=== PATIENT | female | born 1970 | race Caucasian/White ===

== ENCOUNTER 2017-06-04 11:45 | Emergency (ER) ==
[2017-06-04 11:51] VITALS: BP 127/85; TEMP 97.3; BMI 23.2
--- NOTE | 2017-06-04 12:51 | ED.PDOC ---
General ED Provider: Dr. AMRITA HODGSON JR Chief Complaint: Hand Pain/Injury Stated Complaint: PATIENT STATES THAT SHE AWOKE AT 2:00AM YESTERDAY MORNING WITH LOSS OF FEELING IN HER MIDDLE TWO FINGERS. PATIENT STATES THAT SHE HAD BACK PAIN THAT RADIATED THROUGH HER SHOULDER AND DOWN HER ARM TO HER HAND. PATIENT STATES THAT THE PAIN FROM YESTERDAY HAS SINCE IMPROVED, BUT THE NUMBNESS IN HER MIDDLE FINGERS STILL PERSISTS. 97.3 71 18 97% 127/85 2/10 naproxen Time Seen by Physician: 12:48 Mode of Arrival: Walk-In Information Source: Patient Exam Limitations: No limitations Nursing and Triage Documentation Reviewed and Agree: No Review of Systems - Review Of Systems Constitutional: Reports: No symptoms Eyes: Reports: No symptoms Ears, Nose, Mouth, Throat: Reports: No symptoms Respiratory: Reports: No symptoms Cardiac: Reports: No symptoms GI: Reports: No symptoms : Reports: No symptoms Musculoskeletal: Reports: Joint pain, Joint swelling, Muscle pain Skin: Reports: No symptoms Neurological: Reports: No symptoms Endocrine: Reports: No symptoms Hematologic/Lymphatic: Reports: No symptoms All Other Systems: Other Past Medical History - Past Medical History Previously Healthy: Yes Endocrine: Reports: None Cardiovascular: Reports: Hypertension Respiratory: Reports: None Hematological: Reports: None Gastrointestinal: Reports: None Genitourinary: Reports: None Neuro/Psych: Reports: Migraine Musculoskeletal: Reports: None Cancer: Reports: None Last Menstrual Period: MIRENA - Surgical History General Surgical History: Reports: Tubal ligation (TUBAL LIGATION 1996), Hernia Repair (HERNIA REPAIR 1976 ) - Family History Family History: Reports: Unknown - Social History Smoking Status: Current every day smoker, Heavy tobacco smoker Hx Substance Use: No Alcohol Screening: Occasionally - Immunizations Tetanus Shot up to Date: No Physical Exam - Physical Exam Appearance: Well-appearing, Thin Pain Distress: Moderate Eyes: HAIM ENT: Ears normal, Nose normal, Oropharynx normal Neck: Supple Respiratory: Airway patent Cardiovascular: RRR, Pulses normal, No rub, No murmur GI/: Soft, Nontender, No masses, Bowel sounds normal, No Organomegaly Musculoskeletal: Normal strength, ROM intact, No edema, No calf tenderness Skin: Warm, Dry, Normal color Neurological: Sensation intact (pain in radicular patterd rightarm into hand) Psychiatric: Anxious Interpretation - Radiology Interpretation Radiology Interpretation By: Radiologist Radiology Results: Positive Exam Interpreted: CT Scan (DJD C4-C6 negative tspin) Critical Care Note - Critical Care Note Total Time (mins): 0 Course - Course Orders, Labs, Meds: Orders Category Date Time Status CT CERVICAL SPINE W/O CONTRAST Stat RADS 06/04/17 12:[address] THORACIC SPINE W/O CONTRAST Stat RADS 06/04/17 12:58 Completed Vital Signs: Temp Pulse Resp BP Pulse Ox 06/04/17 11:46 97.3 F L 71 18 127/85 97 Departure - Departure Time of Disposition: 13:56 Disposition: HOME SELF-CARE Discharge Problem: Brachial neuritis or radiculitis NOS Instructions: Cervical Radiculopathy (ED) Condition: Fair Pt referred to PMD for follow-up: Yes Additional Instructions: constriction in spine may add to pain and numbness in hand recommend prednisone and rest \ follow up with PMD discuss MRI for evaluation Neurontin and ice for pain gradual return to activity may follow up with [facility] Prescriptions: Naproxen [Naprosyn] 500 mg PO Q12HR PRN #30 tablet PRN Reason: PAIN Gabapentin [Neurontin] 300 mg PO BID PRN #30 capsule PRN Reason: radating pain Allergies/Adverse Reactions: Allergies No Known Allergies Allergy (Unverified 06/04/17 11:51) Home Medications: Ambulatory Orders Gabapentin [Neurontin] 300 mg PO BID PRN #30 capsule 06/04/17 Naproxen [Naprosyn] 500 mg PO Q12HR PRN #30 tablet 06/04/17 Nebivolol HCl [Bystolic] 10 mg PO PRN PRN 06/04/17
--- NOTE | 2017-06-04 13:47 | CT ---
EXAM: CT cervical spine. HISTORY: Acute pain and numbness of right arm and hand/fingers. TECHNIQUE: CT cervical spine without contrast. Detailed axial sections. Coronal and sagittal re-fo rmations. COMPARISON: None FINDINGS: No fracture or loss of vertebral body height. Facet joints are covered. There is no scoliosis. La teral masses of C1 and C2 are normally aligned and the odontoid process is intact. Mild reversal of normal cervical lordosis centered at C4/C5. At C4/C5, there is a posterior disc osteophyte complex which leads to at least mild central canal lesa nosis and bilateral neural foraminal narrowing, the latter greater on the right. At C5/C6, there is a posterior disc osteophyte complex leading to probable moderate central canal lesa nosis and moderate bilateral neural foraminal narrowing with the foraminal stenosis greater on the ri ght. Incidental findings include irregular pleuroparenchymal thickening in the lung apices, greater on the right with associated paraseptal emphysema suggesting fibrosis. IMPRESSION: Degenerative changes most apparent at C4-C6 which may be related to the patient's sympto ms. Correlation with MRI can be considered.
--- NOTE | 2017-06-04 13:49 | CT ---
EXAM: CT thoracic spine without contrast HISTORY: Right paraspinal pain radiating to the arm and right hand. COMPARISON: CT cervical spine same day TECHNIQUE: Serial axial images of the thoracic spine were obtained without contrast. These were vie wed in multiple planes. FINDINGS: There is no acute compression fracture or subluxation. There is no lytic or blastic lesion . The facets and posterior processes are normal. There is anterior disc osteophyte noted at T7-T8. Soft tissues demonstrate minimal bibasilar atelectasis. There is no consolidation or nodule. IMPRESSION: 1. No acute compression fracture or subluxation. 2. Minimal degenerative change at T7-T8 with no additional abnormality identified.
== END 2017-06-04 14:10 | disposition home or self-care (01) ==
LOC: ED 11:45
DX: M54.12 Radiculopathy, cervical region (principal); F17.210 Nicotine dependence, cigarettes, uncomplicated
CPT/HCPCS: 99282